=== PATIENT | female | born 1950 | race Caucasian/White ===

== ENCOUNTER → 2017-01-26 | Outpatient (CLI) | payer MEDICARE, BC ==
[~2017-01-26] MED LIST: BUMETANIDE0.5 MG PO; CALCIUM500 M1 PO; CEPHALEXIN500 M1 PO; HYDROCODON-ACE1 EAC7 PO; LEVO-T175 MCG PO; LIPITOR20 MG PO; MAG-OX 400400 M1 PO; VITAMIN D35000 UNI1 PO
== END | disposition home or self-care (01) ==
LOC: CSSDAY 11:08
DX: D64.9 Anemia, unspecified (principal)
CPT/HCPCS: 36415; 36430; 86850; 86900; 86901; 86923; J1200; P9016

== ENCOUNTER → 2017-03-30 | Outpatient (CLI) | payer MEDICARE, BC ==
--- NOTE | ~2017-03-30 | US5 ---
[facility] A Service of [facility] & [facility] RADIOLOGY TEXT RESULTS PATIENT: LIAN HORTON LOCATION: [facility] : 51 UNIT #: [id number] AGE: [address]: Claudio Persaud MD SEX: F ORDER DR: [id number] [facility] [address] [place], [place] [address] [id number] O MR#: [id number] Acc #: [id number] NAME: LIAN HORTON : 1950 SEX: F STUDY DATE/TIME: 03/30/2017 9:02 UNIT: [facility] ROOM: STUDY DESCRIPTION: US Abdominal Complete Attending Physician: Claudio Persaud M.D. Referring Physician: Claudio Persaud M.D. Ordering Physician: Claudio Persaud M.D. Primary Care Physician: Sid Malloy M.D. MEDICAL IMAGING REPORT This report is preliminary unless electronic signature is present EXAM Abdominal ultrasound complete 03/30/2017 HISTORY Abdomen pain for 6 months and cholecystectomy. Hepatic cirrhosis. Observation for hepatocellular carcinoma. FINDINGS The liver demonstrates a coarsened echotexture and surface nodularity characteristic of cirrhosis. No cystic or solid mass lesions were seen in the liver. The intra and extrahepatic bile ducts are not dilated. The gallbladder is surgically absent as per patient history. The common duct measures 5 mm. The pancreas is normal. The spleen is enlarged measuring 14.7 cm in greatest diameter. Visualized portions of the abdominal aorta and inferior vena cava are within normal limits. The kidneys are normal bilaterally. Moderate ascites is noted. IMPRESSION 1. Coarsened liver echotexture and surface nodularity characteristic of cirrhosis. No cystic or solid mass lesions were seen in the liver. 2. Surgical absence of the gallbladder. 3. Splenomegaly. 4. Moderate ascites. Dictated by... Melvin Michel M.D. THIS IS AN ELECTRONICALLY VERIFIED REPORT Melvin Michel M.D. at 03/31/2017 6:17 AM ZACH/vern TD: 03/30/2017 12:44 JOB #: [id number] [facility] A Service of [facility] & [facility] RADIOLOGY TEXT RESULTS PATIENT: LIAN HORTON LOCATION: [facility] #: [id number] : 51 UNIT #: [id number] AGE: [address]: Claudio Persaud MD SEX: F ORDER DR: MEDICAL IMAGING REPORT Page 1 of 1 COPY
== END | disposition home or self-care (01) ==
LOC: CGUS 08:39
DX: K74.60 Unspecified cirrhosis of liver (principal); R16.1 Splenomegaly, not elsewhere classified; R18.8 Other ascites; Z90.49 Acquired absence of other specified parts of digestive tract
CPT/HCPCS: 76700

== ENCOUNTER → 2017-05-17 | Outpatient (CLI) | payer MEDICARE, BC ==
--- NOTE | ~2017-05-17 | CR63 ---
[facility] A Service of [facility] & [facility] RADIOLOGY TEXT RESULTS PATIENT: LIAN HORTON LOCATION: [facility] : 51 UNIT #: [id number] AGE: [address]: Paul Benton MD SEX: F ORDER DR: [id number] [facility] [address] [place], [place] [address] [id number] O MR#: [id number] Acc #: [id number] NAME: LIAN HORTON : 1950 SEX: F STUDY DATE/TIME: 05/17/2017 14:14 UNIT: [facility] ROOM: STUDY DESCRIPTION: CR Chest 2 View Attending Physician: Paul Benton M.D. Referring Physician: Paul Benton M.D. Ordering Physician: Paul Benton M.D. Primary Care Physician: Quyen Ellis M.D. MEDICAL IMAGING REPORT This report is preliminary unless electronic signature is present EXAM Chest x-ray 05/17 INDICATIONS Anemia. Shortness of air, especially with activity, over the last 8 months. Fluid on lungs. TECHNIQUE 2 views of the chest are compared with 06/15/2016. FINDINGS There is cardiomegaly. Patient is status post cervical fusion. There are bilateral iqlli-dp-[id number] pleural effusions with new infiltrate or atelectasis in the bases. No pneumothorax. IMPRESSION New bilateral pleural effusions with bibasilar atelectasis or infiltrate. Dictated by... Chaz Johnson Jr., M.D. THIS IS AN ELECTRONICALLY VERIFIED REPORT Chaz Johnson Jr., M.D. at 05/18/2017 8:49 AM LOKESH/laurita TD: 05/17/2017 22:33 JOB #: [id number] MEDICAL IMAGING REPORT Page 1 of 1 COPY
== END | disposition home or self-care (01) ==
LOC: CRAD 13:44
DX: D61.818 Other pancytopenia (principal); D50.9 Iron deficiency anemia, unspecified; K90.9 Intestinal malabsorption, unspecified; J90 Pleural effusion, not elsewhere classified
CPT/HCPCS: 71020

== ENCOUNTER → 2017-05-20 | Outpatient (CLI) | payer MEDICARE, BC ==
--- NOTE | ~2017-05-20 | XA203 ---
[facility] A Service of [facility] RADIOLOGY TEXT RESULTS PATIENT: LIAN HORTON LOCATION: [facility] : 52 UNIT #: [id number] AGE: [address]: Paul Benton MD SEX: F ORDER DR: [id number] [facility] [address] [place], [place] [address] [id number] O MR#: [id number] Acc #: [id number] NAME: LIAN HORTON : 1950 SEX: F STUDY DATE/TIME: 05/20/2017 9:03 UNIT: [facility] ROOM: STUDY DESCRIPTION: XA Thoracentesis Attending Physician: Paul Benton M.D. Referring Physician: Paul Benton M.D. Ordering Physician: Paul Benton M.D. Primary Care Physician: Quyen Ellis M.D. MEDICAL IMAGING REPORT This report is preliminary unless electronic signature is present EXAM Ultrasound-guided thoracentesis. HISTORY Bilateral pleural effusions, larger on the left than on the right. Shortness of breath. Evaluate fluid as to etiology. TECHNIQUE The procedure was explained to the patient including risks, benefits and complications. Informed consent was obtained and a formal time-out procedure was utilized. Prior to the procedure, the fluid was localized with ultrasound and the skin was marked. The skin was then prepped with ChloraPrep and sterile drapes were applied. Using sterile technique and following local anesthesia with 1% Xylocaine, a sheath needle was placed in the pleural fluid collection. A total of 750 mL of fluid was aspirated. Some of the fluid was sent for laboratory analysis as requested by the ordering service. The patient tolerated the procedure well. Chest x-ray will be obtained following the procedure to evaluate for pneumothorax with results reported separately. IMPRESSION Technically successful ultrasound guided left thoracentesis with 750 mL of fluid obtained. Laboratory results on the fluid are pending. Dictated by... Chaz Johnson M.D. THIS IS AN ELECTRONICALLY VERIFIED REPORT Chaz Johnson M.D. at 05/21/2017 11:30 AM RLF/jt [facility] A Service of [facility] & [facility] RADIOLOGY TEXT RESULTS PATIENT: LIAN HORTON [facility] UN[facility] #: [id number] AGE: [address]: Paul Benton MD SEX: F ORDER DR: TD: 05/20/2017 21:56 JOB #: [id number] MEDICAL IMAGING REPORT Page 1 of 1 COPY
--- NOTE | ~2017-05-20 | XA170 ---
[facility] A Service of [facility] RADIOLOGY TEXT RESULTS PATIENT: LIAN HORTON LOCATION: [facility] : 51 UNIT #: [id number] AGE: [address]: Paul Benton MD SEX: F ORDER DR: [id number] [facility] [address] [place], [place] [address] [id number] O MR#: [id number] Acc #: [id number] NAME: LIAN HORTON : 1950 SEX: F STUDY DATE/TIME: 05/20/2017 9:03 UNIT: [facility] ROOM: STUDY DESCRIPTION: XA Paracentesis W Image Attending Physician: Paul Benton M.D. Referring Physician: Paul Benton M.D. Ordering Physician: Paul Benton M.D. Primary Care Physician: Quyen Ellis M.D. MEDICAL IMAGING REPORT This report is preliminary unless electronic signature is present EXAM Ultrasound guided paracentesis. HISTORY Ascites. TECHNIQUE The procedure was explained to the patient including risks, benefits and complications. Informed consent was obtained and a formal time-out procedure was utilized. The largest pocket of fluid was marked in the right lower quadrant with ultrasound prior to the procedure. The skin was prepped and draped in usual sterile fashion. Following local anesthesia with 1% Xylocaine, a sheath needle was placed into the fluid. A total of 4.5 L of fluid was withdrawn. Some of the fluid was sent for laboratory analysis as requested by the ordering service. The patient tolerated the procedure well. IMPRESSION Successful paracentesis with 4.5 L of fluid obtained. Dictated by... Chaz Johnson M.D. THIS IS AN ELECTRONICALLY VERIFIED REPORT Chaz Johnson M.D. at 05/21/2017 11:30 AM JANIE/cheko TD: 05/20/2017 22:06 JOB #: [id number] [facility] A Service of [facility] RADIOLOGY TEXT RESULTS PATIENT: LIAN HORTON LOCATION: [facility] #: [id number] : 51 UNIT #: [id number] AGE: [address]: Paul Benton MD SEX: F ORDER DR: MEDICAL IMAGING REPORT Page 1 of 1 COPY
--- NOTE | ~2017-05-20 | CR71 ---
[facility] A Service of [facility] & [facility] RADIOLOGY TEXT RESULTS PATIENT: LIAN HORTON LOCATION: [facility] : 51 UNIT #: [id number] AGE: [address]: Paul Benton MD SEX: F ORDER DR: [id number] [facility] [address] [place], [place] [address] [id number] O MR#: [id number] Acc #: [id number] NAME: LIAN HORTON : 1950 SEX: F STUDY DATE/TIME: 05/20/2017 10:13 [facility] RO[facility]: STUDY DESCRIPTION: CR Chest Single View Attending Physician: Paul Benton M.D. Referring Physician: Paul Benton M.D. Ordering Physician: Chaz Johnson M.D. Primary Care Physician: Quyen Ellis M.D. MEDICAL IMAGING REPORT This report is preliminary unless electronic signature is present EXAM Chest portable, 05/20/2017 10:13 hours HISTORY 67-year-old woman with shortness of air, status post bilateral thoracenteses this morning. COMPARISON Thoracentesis images 05/20/2017, chest x-ray 05/17/2017. FINDINGS Portable upright chest demonstrates mild cardiomegaly. There is marked reduction in the right pleural effusion with no residual fluid seen. Left pleural effusion appears slightly decreased with small to moderate effusion remaining. The upper lungs are clear. Question is raised of a rounded mass-like density at the medial right lung base measuring up to 2.9 cm not seen previously, perhaps obscured by the pleural fluid. CT chest 10/16/2016 is reviewed. No mass or nodule was apparent at the right lung base on that exam. IMPRESSION 1. Patient is status post bilateral thoracenteses today. 4,500 mL removed from the right hemithorax with no residual effusion or pneumothorax. 2. On the left side 750 mL of fluid were removed. The pleural effusion is reduced with small to moderate residual blunting of the left costophrenic angle seen. 3. The upper lungs are clear. 4. There is a 2.9 cm rounded mass-like density in the medial right infrahilar region not seen on the earlier films, perhaps obscured by pleural fluid. Underlying mass or consolidation cannot be excluded. Chest CT of 10/16/2016 is reviewed and no mass or nodule is seen at the right lung base on that exam. [facility] A Service of [facility] & [facility] RADIOLOGY TEXT RESULTS PATIENT: LIAN HORTON LOCATION: [facility] : 51 UNIT #: [id number] AGE: [address]: Paul Benton MD SEX: F ORDER DR: Dictated by... Alena Ireland M.D. THIS IS AN ELECTRONICALLY VERIFIED REPORT Alena Ireland M.D. at 05/21/2017 3:27 PM Linnette TD: 05/20/2017 15:12 JOB #: [id number] MEDICAL IMAGING REPORT Page 1 of 1 COPY
[2017-05-20 08:42] LABS: HEMATOCRIT 31.1 % (35.0-45.0); HEMOGLOBIN 9.9 gm/dL (12.0-16.0); MEAN CORPUSCULAR HEMOGLOBIN 23.5 PG (28-34); MEAN CORPUSCULAR HGB CONC 31.7 g/dL (30-36); MEAN PLATELET VOLUME 8.5 FL (6.5-11.5); RED BLOOD COUNT 4.2 X10e (3.90-5.30); RED CELL DISTRIBUTION WIDTH 16.7 % (11.0-15.5); WHITE BLOOD COUNT 2.7 X10e3 (4.0-10.5)
[2017-05-20 08:50] LABS: INR 1.1; PARTIAL THROMBOPLASTIN TIME 26.9 SECONDS (23.5-31.3); PROTHROMBIN TIME (PATIENT) 12.2 SECONDS (10.0-11.7)
[2017-05-20 11:48] LABS: BF TOTAL NUCLEATED CELL COUNT 339 CMM (0-100); BODY FLUID APPEARANCE HAZY; BODY FLUID SOURCE PARACENTESIS
[2017-05-20 11:49] LABS: BODY FLUID RBC <10000 CMM
[2017-05-20 12:03] LABS: BF TOTAL NUCLEATED CELL COUNT 440 CMM (0-100); BODY FLUID APPEARANCE HAZY; BODY FLUID RBC <10000 CMM; BODY FLUID SOURCE THORACENTESIS
[2017-05-20 13:19] LABS: PROTEIN, BODY FLUID 0.9 gm/dL
[2017-05-20 13:20] LABS: PROTEIN, BODY FLUID 1.7 gm/dL
== END | disposition home or self-care (01) ==
LOC: CIVR 08:02
PROVIDERS: Internal Medicine Hematology & Oncology
PROC: 0W9G3ZX Drainage of Peritoneal Cavity, Percutaneous Approach, Diagnostic (ICD-10-PCS; principal; 2017-05-20)
PROC: 0W9B3ZZ Drainage of Left Pleural Cavity, Percutaneous Approach (ICD-10-PCS; 2017-05-20)
DX: D61.818 Other pancytopenia (principal); D50.9 Iron deficiency anemia, unspecified; K90.9 Intestinal malabsorption, unspecified; R18.8 Other ascites; J90 Pleural effusion, not elsewhere classified; J98.4 Other disorders of lung
CPT/HCPCS: 36415; 71010; 83615; 83986; 84157; 85027; 85610; 85730; 87070; 87205; 88108; 88305; 89051

== ENCOUNTER → 2017-06-02 | Outpatient (CLI) | payer MEDICARE, BC ==
--- NOTE | ~2017-06-02 | XA170 ---
[facility] A Service of [facility] & [facility] RADIOLOGY TEXT RESULTS PATIENT: LIAN HOROTN LOCATION: [facility] : 51 UNIT #: [id number] AGE: [address]: Paul Benton MD SEX: F ORDER DR: [id number] [facility] [address] [place], [place] [address] [id number] O MR#: [id number] Acc #: [id number] NAME: LIAN HORTON : 1950 SEX: F STUDY DATE/TIME: 06/02/2017 7:35 UNIT: [facility] ROOM: STUDY DESCRIPTION: XA Paracentesis W Image Attending Physician: Paul Benton M.D. Referring Physician: Paul Benton M.D. Ordering Physician: Paul Benton M.D. Primary Care Physician: Quyen Ellis M.D. MEDICAL IMAGING REPORT This report is preliminary unless electronic signature is present EXAM Ultrasound-guided paracentesis, 06/02/2017. HISTORY Ascites, paracentesis requested. PROCEDURE Study performed under standard sterile technique after ultrasound localization of a suitable skin site which was then marked. After sterile preparation, draping and local anesthesia, a Yueh needle catheter was used for paracentesis and 2.65 L of fluid was removed without complication. IMPRESSION 1. Successful ultrasound-guided right lower quadrant paracentesis with removal of 2.65 L of fluid without complication. 2. Single ultrasound spot image preserved. Dictated by... Anand Berman M.D. THIS IS AN ELECTRONICALLY VERIFIED REPORT Anand Berman M.D. at 06/10/2017 4:10 PM TABATHA/cheko TD: 06/03/2017 16:44 JOB #: [id number] MEDICAL IMAGING REPORT Page 1 of 1 COPY
--- NOTE | ~2017-06-02 | CT55 ---
[facility] A Service of [facility] & [facility] RADIOLOGY TEXT RESULTS PATIENT: LIAN HORTON [facility] UNIT #: [id number] AGE: [address]: Paul Benton MD SEX: F ORDER DR: [id number] [facility] [address] [place], [place] [address] [id number] O MR#: [id number] Acc #: [id number] NAME: LIAN HORTNO : 1950 SEX: F STUDY DATE/TIME: 06/02/2017 8:12 UNIT: [facility] ROOM: STUDY DESCRIPTION: CT Chest W Con Attending Physician: Paul Benton M.D. Referring Physician: Paul Benton M.D. Ordering Physician: Paul Benton M.D. Primary Care Physician: Quyen Ellis M.D. MEDICAL IMAGING REPORT This report is preliminary unless electronic signature is present EXAM Chest CT with contrast, 06/02/2017. PROCEDURE Axial contrast-enhanced chest CT with multiplanar reformats. This CT exam was performed with one or more of the following radiation dose reduction techniques: automatic exposure control, adjustment of mA and/or kV according to patient size, and iterative reconstruction. COMPARISON Previous chest CT dated 10/16/2016. CLINICAL HISTORY Left and right side back pain and shortness of air for 2 weeks. FINDINGS There are moderate to large bilateral pleural effusions, right slightly greater than left. However, there is no infiltrate or suspicious nodule in any of the non-atelectatic lung. There is no mediastinal mass or adenopathy though there are coronary atherosclerotic vascular calcifications. Images of the upper abdomen reveal changes of psoriasis and splenomegaly, as well as ascites. There are spinal degenerative changes, with extensive flowing osteophytes but no bone erosion or destruction or fracture. IMPRESSION 1. Moderate to large bilateral effusions right greater than left with compressive dependent atelectasis, but otherwise no consolidation. There is no pneumothorax or suspicious nodule. 2. Incidental note made of coronary atherosclerotic vascular calcification, cirrhosis, splenomegaly, and ascites. [facility] A Service of [facility] & [facility] RADIOLOGY TEXT RESULTS PATIENT: LIAN HORTON LOCATION: [facility] : 51 UNIT #: [id number] AGE: [address]: Paul Benton MD SEX: F ORDER DR: Dictated by... Anand Berman M.D. THIS IS AN ELECTRONICALLY VERIFIED REPORT Anand Berman M.D. at 06/06/2017 9:09 AM TEV/jt TD: 06/03/2017 00:11 JOB #: [id number] MEDICAL IMAGING REPORT Page 1 of 1 COPY
[2017-06-02 07:46] LABS: POC - CREATININE 0.79 mg/dL (0.44-1.03); POC - GFR >60.0 mL/min (>60)
== END | disposition home or self-care (01) ==
LOC: CCAT 07:06
PROVIDERS: Internal Medicine Hematology & Oncology
DX: D61.818 Other pancytopenia (principal); D50.9 Iron deficiency anemia, unspecified; K90.9 Intestinal malabsorption, unspecified; R18.8 Other ascites
CPT/HCPCS: 71260; 82565; Q9967

== ENCOUNTER → 2017-06-15 | Outpatient (CLI) | payer MEDICARE, BC ==
--- NOTE | ~2017-06-15 | XA170 ---
[facility] A Service of [facility] & [facility] RADIOLOGY TEXT RESULTS PATIENT: LIAN HORTON LOCATION: [facility] : 51 UNIT #: [id number] AGE: [address]: Paul Benton MD SEX: F ORDER DR: [id number] [facility] [address] [place], [place] [address] [id number] O MR#: [id number] Acc #: [id number] NAME: LIAN HORTON : 1950 SEX: F STUDY DATE/TIME: 06/15/2017 15:00 UNIT: [facility] ROOM: STUDY DESCRIPTION: XA Paracentesis W Image Attending Physician: Paul Benton M.D. Referring Physician: Palu Benton M.D. Ordering Physician: Paul Benton M.D. Primary Care Physician: Quyen Ellis M.D. MEDICAL IMAGING REPORT This report is preliminary unless electronic signature is present EXAM Ultrasound guided paracentesis INDICATIONS Ascites. PROCEDURE The risks, benefits, and alternatives to the procedure were explained to the patient, and signed, informed consent was obtained. She was placed supine on the stretcher preliminary ultrasound of the abdomen was performed which demonstrated large volume ascites. This image is permanently saved overlying skin was marked. Patient is prepped and draped in the usual sterile fashion. Time-out was performed as per protocol. Skin and subcutaneous tissues were anesthetized with buffered lidocaine Yueh catheter was advanced into the fluid with aspiration of serous material. Catheter was hooked to suction tubing. There was evacuation of 5.3 liters of serous material catheter was then removed and manual pressure was applied until hemostasis was obtained. IMPRESSION Technically successful ultrasound guided paracentesis with evacuation of 5.3 liters of serous material. Ultrasound was used during the procedure and permanent images were saved. Dictated by... Dimple Benitez M.D. THIS IS AN ELECTRONICALLY VERIFIED REPORT Dimple Benitez M.D. at 06/16/2017 2:44 PM AFF/rnr TD: 06/16/2017 13:08 JOB #: [id number] [facility] A Service of [facility] & [facility] RADIOLOGY TEXT RESULTS PATIENT: LIAN HORTON LOCATION: [facility] #: [id number] : 52 UNIT #: [id number] AGE: [address]: Paul Benton MD SEX: F ORDER DR: MEDICAL IMAGING REPORT Page 1 of 1 COPY
== END | disposition home or self-care (01) ==
LOC: CIVR 13:01 → CLAB 13:01 → CIVR 14:00
PROC: 0W9G3ZZ Drainage of Peritoneal Cavity, Percutaneous Approach (ICD-10-PCS; principal; 2017-06-15)
DX: R18.8 Other ascites (principal); D61.818 Other pancytopenia; D50.9 Iron deficiency anemia, unspecified; K90.9 Intestinal malabsorption, unspecified
CPT/HCPCS: 36415; 80053; 85027

== ENCOUNTER → 2017-06-21 | Outpatient (CLI) | payer MEDICARE, BC ==
[2017-06-21 15:18] LABS: IRON SERUM 26 ug/dL (28-170); TOTAL IRON BINDING CAPACITY 380 ug/dL (269-535); TRANSFERRIN 272 mg/dL (192-382); TRANSFERRIN SATURATION 7 % (20-50)
== END | disposition home or self-care (01) ==
LOC: CLAB 13:45
PROVIDERS: Internal Medicine Hematology & Oncology
DX: D69.6 Thrombocytopenia, unspecified (principal); D50.9 Iron deficiency anemia, unspecified; D61.818 Other pancytopenia
CPT/HCPCS: 36415; 82728; 83540; 83550

== ENCOUNTER → 2017-06-28 | Outpatient (CLI) | payer MEDICARE, BC ==
--- NOTE | ~2017-06-28 | XA170 ---
[facility] A Service [facility] RADIOLOGY TEXT RESULTS PATIENT: LIAN HORTON LOCATION: [facility] : 52 UNIT #: [id number] AGE: [address]: Paul Benton MD SEX: F ORDER DR: [id number] [place] [id number] [facility] [place], [place] [address] [id number] O MR#: [id number] Acc #: [id number] NAME: LIAN HORTON : 1950 SEX: F STUDY DATE/TIME: 06/28/2017 8:05 UNIT: [facility] ROOM: STUDY DESCRIPTION: XA Paracentesis W Image Attending Physician: Paul Benton M.D. Referring Physician: Paul Benton M.D. Ordering Physician: Paul Benton M.D. Primary Care Physician: Quyen Ellis M.D. MEDICAL IMAGING REPORT This report is preliminary unless electronic signature is present PROCEDURE Ultrasound-guided paracentesis INDICATION 67-year-old female with recurrent ascites. Procedure performed by Ayana Rodríguez APRN. This is being dictated by Dr. Marquez Bridges. FINDINGS The risks, benefits and alternatives of the procedure were discussed with the patient and informed consent was obtained. In the procedure room a time-out was performed confirming correct patient and procedure. All elements of maximum sterile barrier technique utilized according to guidelines appropriate for the procedure. TECHNIQUE/FINDINGS Ultrasound of the right lower quadrant was performed demonstrating a large amount of ascites. The overlying skin was prepped and draped in the usual sterile fashion with 2% Chlorhexidine. 1% lidocaine utilized to anesthetize the skin underlying subcutaneous tissues. Next, under ultrasound guidance 5-Gibraltarian Yueh catheter was inserted into the peritoneal space of the right lower quadrant and 5500 mL of fluid was removed. Needle was removed and a sterile dressing was applied. The patient tolerated the procedure well without immediate complications. IMPRESSION Technically successful ultrasound-guided paracentesis. Dictated by... [facility] A Service of [facility] & [facility] RADIOLOGY TEXT RESULTS PATIENT: LIAN HORTON LOCATION: [facility] : 52 UNIT #: [id number] AGE: [address]: Paul Benton MD SEX: F ORDER DR: Marquez Bridges M.D. THIS IS AN ELECTRONICALLY VERIFIED REPORT Marquez Bridges M.D. at 06/29/2017 8:01 AM FLORENCE/shakila TD: 06/28/2017 21:58 JOB #: [id number] MEDICAL IMAGING REPORT Page 1 of 1 COPY
[2017-06-28 08:07] LABS: PARTIAL THROMBOPLASTIN TIME 25.5 SECONDS (23.5-31.3); PROTHROMBIN TIME (PATIENT) 11.3 SECONDS (10.0-11.7)
== END | disposition home or self-care (01) ==
LOC: CIVR 07:09
PROVIDERS: Internal Medicine Hematology & Oncology
PROC: 0W9G3ZX Drainage of Peritoneal Cavity, Percutaneous Approach, Diagnostic (ICD-10-PCS; principal; 2017-06-28)
DX: D61.818 Other pancytopenia (principal); D50.9 Iron deficiency anemia, unspecified; K90.9 Intestinal malabsorption, unspecified; R18.8 Other ascites
CPT/HCPCS: 36415; 85610; 85730